=== PATIENT | female | born 1945 | race Caucasian/White ===

== ENCOUNTER → 2024-08-19 11:25 | Outpatient (REF) | payer MEDICARE, SELFPAY | LOC: WDC 11:25 | PROVIDERS: ATTENDING PHYSICIAN Family Medicine | DX: Z12.31 Encounter for screening mammogram for malignant neoplasm of breast (principal) | CPT/HCPCS: 77063; 77067 ==

== ENCOUNTER → 2025-09-27 14:22 | Outpatient (REF) | payer MEDICARE, SELFPAY | LOC: WDC 14:22 | PROVIDERS: ATTENDING PHYSICIAN Family Medicine | DX: Z12.31 Encounter for screening mammogram for malignant neoplasm of breast (principal) | CPT/HCPCS: 77063; 77067 ==